=== PATIENT | female | born 1980 | race Caucasian/White ===

== ENCOUNTER 2019-07-18 13:10 | Emergency (ER) | payer SELFPAY ==
--- NOTE | 2019-07-18 13:24 | EDM.PDOC ---
ED HPI GENERAL MEDICAL PROBLEM - General Chief Complaint: Cardiovascular Problem Stated Complaint: FLUTTERING HEART Time Seen by Provider: 07/18/19 13:23 - History of Present Illness INITIAL COMMENTS - FREE TEXT/NARRATIVE: 38-year-old female presents the emergency room with palpitations. This is been going on for last couple of weeks. At times she feels her heart racing and at those times she has a crushing sensation in her chest. Then gets better today she is felt the heart race more than normal but has not had the crushing sensation in her chest. Patient has no history of thyroid problems denies any other significant medical problems. No breathing difficulties or shortness of breath. 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 Musculoskeletal History: Reports: None Neurological History: Reports: Headaches, Chronic Psychiatric History: Reports: None Endocrine/Metabolic History: Reports: Obesity/BMI 30+ Hematologic History: Reports: None Immunologic History: Reports: None Oncologic (Cancer) History: Reports: None Dermatologic History: Reports: None - Infectious Disease History Infectious Disease History: Reports: None - Past Surgical History HEENT Surgical History: Reports: Oral Surgery Social & Family History - Tobacco Use Smoking Status *Q: Current Every Day Smoker Years of Tobacco use: 25 Packs/Tins Daily: 1 - Caffeine Use Caffeine Use: Reports: Coffee - Recreational Drug Use Recreational Drug Use: No ED ROS GENERAL - Review of Systems Review Of Systems: See Below Constitutional: Reports: No Symptoms HEENT: Reports: No Symptoms Respiratory: Reports: No Symptoms Cardiovascular: Reports: Palpitations Endocrine: Reports: No Symptoms GI/Abdominal: Reports: No Symptoms : Reports: No Symptoms Neurological: Reports: No Symptoms ED EXAM, GENERAL - Physical Exam Exam: See Below Exam Limited By: No Limitations General Appearance: Alert, No Apparent Distress Head: Atraumatic, Normocephalic Neck: Normal Inspection, Supple, Non-Tender, Full Range of Motion. No: Lymphadenopathy (L), Lymphadenopathy (R), Thyromegaly Respiratory/Chest: No Respiratory Distress, Lungs Clear, Normal Breath Sounds Cardiovascular: Normal Peripheral Pulses, Regular Rate, Rhythm, No Edema GI/Abdominal: Normal Bowel Sounds, Soft, Non-Tender Course - Vital Signs Last Recorded V/S: Last Vital Signs Temp 36.2 C 07/18/19 13:18 Pulse 89 07/18/19 13:18 Resp 16 07/18/19 13:18 BP 168/125 H 07/18/19 13:18 Pulse Ox 100 07/18/19 13:18 - Orders/Labs/Meds Orders: Active Orders 24 hr Category Date Time Status EKG 12 Lead [EKG Documentation Completion] [RC] ROUTINE Care 07/18/19 13:24 Active Holter Monitor 48 Hours [RC] .PRN Care 07/18/19 16:15 Ordered Labs: Laboratory Tests 07/18/19 07/18/19 Range/Units 14:05 14:05 WBC 9.59 (3.98-10.04) K/mm3 RBC 4.55 (3.98-5.22) M/mm3 Hgb 13.4 (11.2-15.7) gm/dl Hct 39.8 (34.1-44.9) % MCV 87.5 (79.4-94.8) fl MCH 29.5 (25.6-32.2) pg MCHC 33.7 (32.2-35.5) g/dl RDW Std Deviation 45.6 (36.4-46.3) fL Plt Count 151 L (182-369) K/mm3 MPV 11.9 (9.4-12.3) fl Neut % (Auto) 64.4 (34.0-71.1) % Lymph % (Auto) 25.4 (19.3-51.7) % Stearns % (Auto) 6.7 (4.7-12.5) % Eos % (Auto) 2.9 (0.7-5.8) Baso % (Auto) 0.4 (0.1-1.2) % Neut # (Auto) 6.17 H (1.56-6.13) K/mm3 Lymph # (Auto) 2.44 (1.18-3.74) K/mm3 Stearns # (Auto) 0.64 H (0.24-0.36) K/mm3 Eos # (Auto) 0.28 (0.04-0.36) K/mm3 Baso # (Auto) 0.04 (0.01-0.08) K/mm3 Sodium 140 (136-145) mEq/L Potassium 3.8 (3.5-5.1) mEq/L Chloride 105 (98-107) mEq/L Carbon Dioxide 27 (21-32) mEq/L Anion Gap 11.8 (5-15) BUN 18 (7-18) mg/dL Creatinine 1.0 (0.55-1.02) mg/dL Est Cr Clr Drug Dosing 74.18 mL/min Estimated GFR (MDRD) > 60 (>60) mL/min BUN/Creatinine Ratio 18.0 (14-18) Glucose 97 (74-106) mg/dL Calcium 9.1 (8.5-10.1) mg/dL Magnesium 1.8 (1.8-2.4) mg/dl Total Bilirubin 0.2 (0.2-1.0) mg/dL AST 15 (15-37) U/L ALT 25 (14-59) U/L Alkaline Phosphatase 64 (46-116) U/L Troponin I < 0.017 (0.00-0.056) ng/mL Total Protein 6.8 (6.4-8.2) g/dl Albumin 3.2 L (3.4-5.0) g/dl Globulin 3.6 gm/dL Albumin/Globulin Ratio 0.9 L (1-2) TSH 3rd Generation 1.044 (0.358-3.74) uIU/mL - Re-Assessments/Exams Free Text/Narrative Re-Assessment/Exam: 07/18/19 16:12 Labs finally done and are unrevealing as to the cause of her palpitations we will check a Holter monitor and discharge the patient Departure - Departure Time of Disposition: 16:17 Disposition: Home, Self-Care 01 Clinical Impression: Palpitations Referrals: PCP,None [Primary Care Provider] - Forms: ED Department Discharge Additional Instructions: Return to the emergency room with any questions problems or worsening symptoms. Return the Holter monitor as directed then follow-up in the hospital clinic several days after the Holter is done. Call for an appointment as soon as you can [phone] Sepsis Event Note - Evaluation Sepsis Screening Result: No Definite Risk - Focused Exam Vital Signs: Vital Signs Temp Pulse Resp BP Pulse Ox 07/18/19 13:18 36.2 C 89 16 168/125 H 100 Date Exam was Performed: 07/18/19 Time Exam was Performed: 16:16 - My Orders Last 24 Hours: My Active Orders 07/18/19 13:24 EKG 12 Lead [EKG Documentation Completion] [RC] ROUTINE 07/18/19 16:15 Holter Monitor 48 Hours [RC] .PRN - Assessment/Plan Last 24 Hours: My Active Orders 07/18/19 13:24 EKG 12 Lead [EKG Documentation Completion] [RC] ROUTINE 07/18/19 16:15 Holter Monitor 48 Hours [RC] .PRN
[2019-07-18 16:39] VITALS: BP 130/73; PULSE 70
== END 2019-07-18 16:39 | disposition home or self-care (01) ==
LOC: JD.ED 13:10
DX: R00.2 Palpitations (principal); F17.210 Nicotine dependence, cigarettes, uncomplicated
CPT/HCPCS: 36415; 80053; 83735; 84443; 84484; 85025; 93005; 93010; 93225; 93226; 99283; 99285-25

== ENCOUNTER 2019-10-10 14:05 | Emergency (ER) | payer OTHER ==
[2019-10-10 14:22] VITALS: BP 160/94; PULSE 65
--- NOTE | 2019-10-10 15:03 | EDM.PDOC ---
ED HPI GENERAL MEDICAL PROBLEM - General Source of Information: Reports: Patient, RN Notes Reviewed History Limitations: Reports: No Limitations <Ai Phillips - Last Filed: 10/10/19 16:49> <Alberto Nguyen - Last Filed: 10/13/19 08:38> - General Chief Complaint: Headache Stated Complaint: POSS CONCUSSION Time Seen by Provider: 10/10/19 14:20 - History of Present Illness INITIAL COMMENTS - FREE TEXT/NARRATIVE: The patient presents with complaints of left mastoid pain and difficulties with memory steaming from an incident on Wednesday. She sates she was having intercourse on Wednesday when she rolled to her side she hit her left mastoid area. She does not remember the incident. She has no memory 2 hours prior to the incident and no memory post accident until waking up on Wednesday morning. She reports that she kept thinking the month was December and was calling her boyfriend by the wrong name. She did not remember his correct name until early Wednesday. She returned to work on Wednesday. 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 She did not recognized people she has known for years. She reports lightheadedness, nausea and decreased appetite. She denies urinary symptoms. No constipation or diarrhea. She has no difficulty balance and ambulation. She denies difficulty driving. She expressed as if she has "brain fog". She reports her left mastoid area is tender to touch. She has been taking Tylenol for a constant HERNANDEZ. (Ai Phillips) - Related Data Allergies Allergy/AdvReac Type Severity Reaction Status Date / Time No Known Allergies Allergy Verified 10/10/19 14:22 Home Meds: Home Meds Aller Xt-Tree Pollen-Melaleuca [Melaleuca] 6 tab PO DAILY 07/18/19 [History] Past Medical History Cardiovascular History: Reports: Hypertension Neurological History: Reports: Headaches, Chronic Psychiatric History: Reports: Anxiety, Schizophrenia Endocrine/Metabolic History: Reports: Obesity/BMI 30+ - Past Surgical History HEENT Surgical History: Reports: Oral Surgery <Ai Phlilips - Last Filed: 10/10/19 16:49> Social & Family History - Family History Family Medical History: Noncontributory - Tobacco Use Smoking Status *Q: Current Every Day Smoker Years of Tobacco use: 25 Packs/Tins Daily: 1 - Caffeine Use Caffeine Use: Reports: Energy Drinks <Oliva Phillipsbeth - Last Filed: 10/10/19 16:49> ED ROS GENERAL - Review of Systems Review Of Systems: See Below Constitutional: Reports: Chills, Decreased Appetite. Denies: Fever, Malaise, Weakness, Fatigue HEENT: Denies: Ear Discharge, Hearing Loss, Vertigo, Vision Change Respiratory: Reports: No Symptoms, Shortness of Breath. Denies: Wheezing, Cough Cardiovascular: Reports: Lightheadedness. Denies: Chest Pain, Dyspnea on Exertion Endocrine: Reports: No Symptoms GI/Abdominal: Reports: Decreased Appetite. Denies: Abdominal Pain, Constipation , Diarrhea, Vomiting : Reports: No Symptoms Musculoskeletal: Reports: No Symptoms Skin: Reports: No Symptoms Neurological: Reports: Headache. Denies: Confusion, Dizziness, Numbness, Syncope, Weakness Psychiatric: Reports: No Symptoms Hematologic/Lymphatic: Reports: No Symptoms Immunologic: Reports: No Symptoms <Oliva Phillipsbeth - Last Filed: 10/10/19 16:49> ED EXAM, HEAD INJURY - Physical Exam Exam: See Below Exam Limited By: No Limitations General Appearance: Alert, WD/WN, No Apparent Distress, Other (T: 97.0 P: 65 Resp: 65 Resp: 16 B/P: 160/90) Head: Atraumatic, Normocephalic, Other (No swelling, or discoloration noted) Nexus Criteria: No: Posterior, Midline Cervical Tenderness, Evidence of Intoxication, Altered Level of Consciousness, Focal Neurological Deficit, Painful Distraction Injuries Eyes: Bilateral Eye: EOMI, Normal Inspection, PERRL Ears: Normal External Exam Nose: Normal Inspection Throat/Mouth: Normal Inspection, Normal Lips, Normal Teeth, Normal Gums, Normal Oropharynx, Normal Voice, No Airway Compromise Neck: Non-Tender, Full Range of Motion, Normal Alignment, Normal Inspection Respiratory: No Respiratory Distress, Lungs Clear, Normal Breath Sounds, No Accessory Muscle Use, Chest Non-Tender Cardiovascular: Normal Peripheral Pulses, Regular Rate, Rhythm, No Edema, No Gallop, No JVD, No Murmur, No Rub GI/Abdominal Exam: Normal Bowel Sounds, Soft, Non-Tender, No Organomegaly, No Distention, No Abnormal Bruit, No Mass Back Exam: Full Range of Motion, Normal Inspection, NT Extremities: Normal Inspection, Normal Range of Motion, Non-Tender, No Pedal Edema, Normal Capillary Refill 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 As Tested, No Motor/Sensory Deficits, Alert, Normal Mood/Affect, Oriented x 3 Skin: Normal Color, Warm/Dry - Ton[place] Coma Score Best Eye Response (Ton[place]): (4) Open Spontaneously Best Verbal Response ([place]): (5) Oriented Best Motor Response ([place]): (6) Obeys Commands [place] Total: 15 <Ai Phillips - Last Filed: 10/10/19 16:49> Course <Ai Phillips - Last Filed: 10/10/19 16:49> <Alberto Nguyen - Last Filed: 10/13/19 08:38> - Vital Signs Last Recorded V/S: Last Vital Signs Temp 97.0 F 10/10/19 14:18 Pulse 65 10/10/19 14:18 Resp 16 10/10/19 14:18 BP 160/94 H 10/10/19 14:18 Pulse Ox - Re-Assessments/Exams Free Text/Narrative Re-Assessment/Exam: 14:45 The patient presents with complaints of left mastoid pain and difficulties with memory steaming from an incident on Wednesday. She sates she was having intercourse on Wednesday night when she rolled to her side she hit her left mastoid area. She does not remember the incident. She has no memory 2 hours prior to the incident and no memory post accident until waking up on Wednesday morning. She reports that she kept thinking the month was December and was calling her boyfriend by the wrong name. She did not remember his correct name until early Wednesday. She returned to work on Wednesday. 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 She did not recognized people she has known for years. Advised and educated on clinical course of concussion. She was advised to rest this week or at least until symptoms improve. She stated she has to go [place] the [place] this [place]. She was advised concussions can take weeks to months to heal. (Ai Phillips) 10/10/19 16:23 Initial hx and exam was done by CORAL Oropeza student. I have also examined and interviewed patient. I agree with hx and exam as documented. Discharge instr. as documented. (Alberto Nguyen) Departure <Ai Phillips - Last Filed: 10/10/19 16:49> - Departure Time of Disposition: 15:26 Condition: Fair <Alberto Nguyen - Last Filed: 10/13/19 08:38> - Departure Disposition: Home, Self-Care 01 Clinical Impression: Head concussion - Discharge Information Referrals: Pietro Murcia PA-C [Primary Care Provider] - Forms: ED Department Discharge, ED Return to Work/School Form Additional Instructions: Physical rest and brain rest as much as possible today and the next few days, than increase activity slowly as tolerated. Tylenol q 6 to 8 hr if needed for headache. Follow up clinic if not getting back to normal within 5 to 7 days as expected. Return to ED as needed if symptoms worsening in ay way. Sepsis Event Note - Evaluation Sepsis Screening Result: No Definite Risk - Focused Exam Date Exam was Performed: 10/10/19 Time Exam was Performed: 16:49 <Ai Phillips - Last Filed: 10/10/19 16:49> - Focused Exam Date Exam was Performed: 10/13/19 Time Exam was Performed: 08:37 <Alberto Nguyen - Last Filed: 10/13/19 08:38>
== END 2019-10-10 15:35 | disposition home or self-care (01) ==
LOC: JD.ED 14:05
DX: S06.0X9A Concussion with loss of consciousness of unspecified duration, initial encounter (principal); I10 Essential (primary) hypertension; E66.9 Obesity, unspecified; F17.210 Nicotine dependence, cigarettes, uncomplicated; Z79.899 Other long term (current) drug therapy; Z68.37 Body mass index [BMI] 37.0-37.9, adult; X58.XXXA Exposure to other specified factors, initial encounter
CPT/HCPCS: 99282; 99283

== ENCOUNTER 2020-08-20 21:08 | Emergency (ER) | payer SELFPAY ==
[2020-08-20] MEDS ORDERED: LORazepam 2 MG/ML SDV ONE (21:19)
[2020-08-20] MEDS ORDERED: LORazepam 2 MG/ML SDV IVPUSH ONE (21:21)
[2020-08-20 21:25] VITALS: PULSE 114
--- NOTE | 2020-08-20 21:38 | EDM.PDOC ---
ED HPI GENERAL MEDICAL PROBLEM - General Chief Complaint: Neurological Problem Stated Complaint: [facility] AM[facility] Time Seen by Provider: 08/20/20 21:10 Source of Information: Reports: EMS Notes Reviewed, Old Records History Limitations: Reports: Altered Mental Status - History of Present Illness INITIAL COMMENTS - FREE TEXT/NARRATIVE: She was brought in by EMS with history of having used some sort of recreational mushroom preparation. Patient is unwilling to offer any additional history. She is a smoker. Says she takes no medications. There is a history of psychosis recorded in the record. She either cannot or will not offer any more immediate history. She has received Versed by EMS on the way to the ER. I interviewed her after she had had 2 mg of Ativan IV and she is calm and reasonably focused. The patient's mother was at bedside and she was questioned as well as the patient. Both deny that there is any history of mental illness. The patient has had more or less stable relationships and has 2 children. Also one grandchild. There have been no psychiatric hospitalizations nor psychiatric conditions diagnosed per mother and patient. The patient has a job at the [employer]. She apparently has a new male significant other. Patient contends and the mother agrees that the use of mushrooms which precipitated the transport to the hospital was an isolated event and that there is no history of street drug abuse otherwise. Treatments LABORATORY SAMPLE CARRIER: Reports: Other (see below) Other Treatments LABORATORY SAMPLE CARRIER: versed in ambulance - Related Data Allergies Allergy/AdvReac Type Severity Reaction Status Date / Time No Known Allergies Allergy Verified 08/20/20 21:23 Home Meds: Home Meds . [No Known Home Meds] 08/20/20 [History] Past Medical History - Past Health History Medical/Surgical History: Denies Medical/Surgical History Cardiovascular History: Reports: Hypertension Respiratory History: Reports: None Gastrointestinal History: Reports: None Genitourinary History: Reports: None DEAN OF STUDENTS History: Reports: None Musculoskeletal History: Reports: None Neurological History: Reports: Headaches, Chronic Psychiatric History: Reports: Anxiety, Schizophrenia Endocrine/Metabolic History: Reports: Obesity/BMI 30+ Hematologic History: Reports: None Immunologic History: Reports: None Oncologic (Cancer) History: Reports: None Dermatologic History: Reports: None - Infectious Disease History Infectious Disease History: Reports: None - Past Surgical History HEENT Surgical History: Reports: Oral Surgery Social & Family History - Family History Family Medical History: No Pertinent Family History - Tobacco Use Tobacco Use Status *Q: Current Every Day Tobacco User Years of Tobacco use: 21 Packs/Tins Daily: 1 Second Hand Smoke Exposure: No - Caffeine Use Caffeine Use: Reports: None - Recreational Drug Use Recreational Drug Use: Yes Recreational Drug Type: Reports: Psilocybin (Mushrooms) ED ROS GENERAL - Review of Systems Review Of Systems: Unable To Obtain Reason Not Obtained: Poorly cooperative with interview. - Physical Exam Exam: See Below Text/Narrative:: On exam the patient is in no distress though initially she was quite agitated tremulous and inattentive. She received 2 mg of IV Ativan. At the time of this exam she was calm but withdrawn and unwilling to provide much information. Head normocephalic atraumatic. HEENT grossly unremarkable. Neck supple without jugular venous distention. Patient is comfortable lying flat on the gurney. Bilateral breath sounds are heard, grossly clear but patient resists being positioned for optimal exam. Heart is unremarkable except for a mild tachycardia. Abdomen is soft and nontender. Patient is fairly corpulent. There is no peripheral edema cyanosis or clubbing of the digits. Neurologically she is grossly intact with normal speech such as it is, no gross deficit of motor or sensory function. Skin is warm and dry with normal turgor. The patient's utterances give evidence that she is having probably visual hallucinations. #1 Interpretation EKG Date: 08/20/20 Time: 21:30 Rhythm: Other (sinus tachycardia) Rate (Beats/Min): 115 [place]: Normal P-Wave: Present QRS: Normal ST-T: Depressed QT: Prolonged Comparison: Change From Previous EKG (tachycardia and NS ST changes) #2 Interpretation EKG Date: 08/21/20 Time: 01:48 Rhythm: NSR [place]: Normal P-Wave: Present QRS: Normal ST-T: Other (resolution of nonspecific ST depression almost completely) QT: Prolonged (slightly) Course - Vital Signs Text/Narrative:: The patient has passed the night peacefully and was arousable about 6 AM and we are preparing to discharge her. She is stable. She is no longer tachycardic. She has maintained her oxygen saturation. She is remained afebrile. There is a mildly elevated white count just shy of 15,000. No significant left shift. There is mild thrombocytopenia. Urinalysis without evidence of urinary tract infection. Chest x-ray does not show any focal infiltrate and the patient has remained afebrile with a normal oxygen saturation and clear lungs on exam. Close follow-up with primary physician is advised. She should call today and be seen within 24 hours if at all possible. She needs follow-up with respect to her CBC. Also her clinical status. Last Recorded V/S: Last Vital Signs Temp 36.6 C 08/20/20 21:12 Pulse 114 H 08/20/20 21:12 Resp 24 H 08/20/20 21:12 BP Pulse Ox 96 08/20/20 21:12 - Orders/Labs/Meds Orders: Active Orders 24 hr Category Date Time Status EKG Documentation Completion [RC] STAT Care 08/20/20 21:22 Active EKG Documentation Completion [RC] STAT Care 08/21/20 01:35 Active Chest 1V Frontal [CR] Stat Exams 08/20/20 23:02 Taken Head wo Cont [CT] Stat Exams 08/20/20 23:01 Taken Sodium Chloride 0.9% [Normal Saline] 1,000 ml Med 08/20/20 21:30 Active IV ASDIRECTED Medication Orders Sodium Chloride (Normal Saline) 1,000 mls @ 150 mls/hr IV ASDIRECTED YUNG Last Admin: 08/21/20 05:26 Dose: 150 mls/hr Documented by: Infusion: 08/21/20 04:41 Dose: 150 mls/hr Documented by: Admin: 08/20/20 22:00 Dose: 150 mls/hr Documented by: CRISS Labs: Laboratory Tests 08/20/20 08/20/20 08/20/20 Range/Units 21:29 21:29 21:29 WBC 14.54 H (3.98-10.04) K/mm3 RBC 4.57 (3.98-5.22) M/mm3 Hgb 11.7 D (11.2-15.7) gm/dl Hct 37.3 (34.1-44.9) % MCV 81.6 D (79.4-94.8) fl MCH 25.6 (25.6-32.2) pg MCHC 31.4 L (32.2-35.5) g/dl RDW Std Deviation 49.6 H (36.4-46.3) fL Plt Count 175 L (182-369) K/mm3 MPV 12.4 H (9.4-12.3) fl Neutrophils % (Manual) 62 H (40-60) % Band Neutrophils % 0 (0-10) % Lymphocytes % (Manual) 30 (20-40) % Atypical Lymphs % 0 % Monocytes % (Manual) 5 (2-10) % Eosinophils % (Manual) 3 (0.7-5.8) % Basophils % (Manual) 0 L (0.1-1.2) Platelet Estimate Adequate Anisocytosis 1+ slight RBC Morph Comment Abnormal Sodium 141 (136-145) mEq/L Potassium 3.4 L (3.5-5.1) mEq/L Chloride 104 (98-107) mEq/L Carbon Dioxide 24 (21-32) mEq/L Anion Gap 16.4 H (5-15) BUN 15 (7-18) mg/dL Creatinine 0.9 (0.55-1.02) mg/dL Est Cr Clr Drug Dosing 84.66 mL/min Estimated GFR (MDRD) > 60 (>60) mL/min BUN/Creatinine Ratio 16.7 (14-18) Glucose 137 H (74-106) mg/dL Calcium 8.6 (8.5-10.1) mg/dL Magnesium 1.9 (1.8-2.4) mg/dl Total Bilirubin 0.2 (0.2-1.0) mg/dL AST 19 (15-37) U/L ALT 36 (14-59) U/L Alkaline Phosphatase 71 (46-116) U/L Troponin I < 0.017 (0.00-0.056) ng/mL Total Protein 7.2 (6.4-8.2) g/dl Albumin 3.4 (3.4-5.0) g/dl Globulin 3.8 gm/dL Albumin/Globulin Ratio 0.9 L (1-2) Lipase 132 (73-393) U/L TSH 3rd Generation 1.517 (0.358-3.74) uIU/mL Urine Color (Yellow) Urine Appearance (Clear) Urine pH (5.0-8.0) Ur Specific [place] (1.005-1.030) Urine Protein (Negative) Urine Glucose (UA) (Negative) Urine Ketones (Negative) Urine Occult Blood (Negative) Urine Nitrite (Negative) Urine Bilirubin (Negative) Urine Urobilinogen (0.2-1.0) Ur Leukocyte Esterase (Negative) Urine RBC (0-5) /hpf Urine WBC (0-5) /hpf Ur Squamous Epith Cells (0-5) /hpf Urine Bacteria (FEW) /hpf Urine Mucus (FEW) /hpf Urine HCG, Qual (NEGATIVE) Salicylates 3.8 (2.8-20) mg/dL Urine Opiates Screen (SJAYRU=239) Ur Buprenorphine Scrn (CUTOFF=10) Ur Oxycodone Screen (WBS1RU=284) Urine Methadone Screen (TNNVGI=245) Ur Propoxyphene Screen (VVZDAJ=103) Acetaminophen 0 L (10-30) ug/mL Ur Barbiturates Screen (RIFUCX=512) Ur Tricyclics Screen (QOYLSZ=856) Ur Phencyclidine Scrn (CUTOFF=25) Ur Amphetamine Screen (SXOUKW=293) U Methamphetamines Scrn (BMDYPD=141) U Benzodiazepines Scrn (GVRDDC=156) U Cocaine Metab Screen (BKSHRQ=925) U Marijuana (THC) Screen (CUTOFF=50) Ethyl Alcohol 0.00 (0.00) gm% SARS-CoV-2 RNA (SELAM) (NEGATIVE) 08/20/20 08/20/20 08/20/20 Range/Units 21:30 21:45 21:45 WBC (3.98-10.04) K/mm3 RBC (3.98-5.22) M/mm3 Hgb (11.2-15.7) gm/dl Hct (34.1-44.9) % MCV (79.4-94.8) fl MCH (25.6-32.2) pg MCHC (32.2-35.5) g/dl RDW Std Deviation (36.4-46.3) fL Plt Count (182-369) K/mm3 MPV (9.4-12.3) fl Neutrophils % (Manual) (40-60) % Band Neutrophils % (0-10) % Lymphocytes % (Manual) (20-40) % Atypical Lymphs % % Monocytes % (Manual) (2-10) % Eosinophils % (Manual) (0.7-5.8) % Basophils % (Manual) (0.1-1.2) Platelet Estimate Anisocytosis RBC Morph Comment Sodium (136-145) mEq/L Potassium (3.5-5.1) mEq/L Chloride (98-107) mEq/L Carbon Dioxide (21-32) mEq/L Anion Gap (5-15) BUN (7-18) mg/dL Creatinine (0.55-1.02) mg/dL Est Cr Clr Drug Dosing mL/min Estimated GFR (MDRD) (>60) mL/min BUN/Creatinine Ratio (14-18) Glucose (74-106) mg/dL Calcium (8.5-10.1) mg/dL Magnesium (1.8-2.4) mg/dl Total Bilirubin (0.2-1.0) mg/dL AST (15-37) U/L ALT (14-59) U/L Alkaline Phosphatase (46-116) U/L Troponin I (0.00-0.056) ng/mL Total Protein (6.4-8.2) g/dl Albumin (3.4-5.0) g/dl Globulin gm/dL Albumin/Globulin Ratio (1-2) Lipase (73-393) U/L TSH 3rd Generation (0.358-3.74) uIU/mL Urine Color Yellow (Yellow) Urine Appearance Clear (Clear) Urine pH 5.5 (5.0-8.0) Ur Specific [place] > or = 1.030 (1.005-1.030) Urine Protein 1+ H (Negative) Urine Glucose (UA) Negative (Negative) Urine Ketones Negative (Negative) Urine Occult Blood Negative (Negative) Urine Nitrite Negative (Negative) Urine Bilirubin 1+ H (Negative) Urine Urobilinogen 0.2 (0.2-1.0) Ur Leukocyte Esterase Negative (Negative) Urine RBC 0-5 (0-5) /hpf Urine WBC 0-5 (0-5) /hpf Ur Squamous Epith Cells 0-5 (0-5) /hpf Urine Bacteria Few (FEW) /hpf Urine Mucus Few (FEW) /hpf Urine HCG, Qual Negative (NEGATIVE) Salicylates (2.8-20) mg/dL Urine Opiates Screen (TUBILT=178) Ur Buprenorphine Scrn (CUTOFF=10) Ur Oxycodone Screen (TIW6OU=002) Urine Methadone Screen (SWOVAD=205) Ur Propoxyphene Screen (PSHWRY=843) Acetaminophen (10-30) ug/mL Ur Barbiturates Screen (PWEDNI=512) Ur Tricyclics Screen (PDAMGV=274) Ur Phencyclidine Scrn (CUTOFF=25) Ur Amphetamine Screen (CAAXWW=806) U Methamphetamines Scrn (NVEKGS=338) U Benzodiazepines Scrn (GTQNMF=094) U Cocaine Metab Screen (YBHIPS=695) U Marijuana (THC) Screen (CUTOFF=50) Ethyl Alcohol (0.00) gm% SARS-CoV-2 RNA (SELAM) Negative (NEGATIVE) 08/20/20 Range/Units 21:45 WBC (3.98-10.04) K/mm3 RBC (3.98-5.22) M/mm3 Hgb (11.2-15.7) gm/dl Hct (34.1-44.9) % MCV (79.4-94.8) fl MCH (25.6-32.2) pg MCHC (32.2-35.5) g/dl RDW Std Deviation (36.4-46.3) fL Plt Count (182-369) K/mm3 MPV (9.4-12.3) fl Neutrophils % (Manual) (40-60) % Band Neutrophils % (0-10) % Lymphocytes % (Manual) (20-40) % Atypical Lymphs % % Monocytes % (Manual) (2-10) % Eosinophils % (Manual) (0.7-5.8) % Basophils % (Manual) (0.1-1.2) Platelet Estimate Anisocytosis RBC Morph Comment Sodium (136-145) mEq/L Potassium (3.5-5.1) mEq/L Chloride (98-107) mEq/L Carbon Dioxide (21-32) mEq/L Anion Gap (5-15) BUN (7-18) mg/dL Creatinine (0.55-1.02) mg/dL Est Cr Clr Drug Dosing mL/min Estimated GFR (MDRD) (>60) mL/min BUN/Creatinine Ratio (14-18) Glucose (74-106) mg/dL Calcium (8.5-10.1) mg/dL Magnesium (1.8-2.4) mg/dl Total Bilirubin (0.2-1.0) mg/dL AST (15-37) U/L ALT (14-59) U/L Alkaline Phosphatase (46-116) U/L Troponin I (0.00-0.056) ng/mL Total Protein (6.4-8.2) g/dl Albumin (3.4-5.0) g/dl Globulin gm/dL Albumin/Globulin Ratio (1-2) Lipase (73-393) U/L TSH 3rd Generation (0.358-3.74) uIU/mL Urine Color (Yellow) Urine Appearance (Clear) Urine pH (5.0-8.0) Ur Specific [place] (1.005-1.030) Urine Protein (Negative) Urine Glucose (UA) (Negative) Urine Ketones (Negative) Urine Occult Blood (Negative) Urine Nitrite (Negative) Urine Bilirubin (Negative) Urine Urobilinogen (0.2-1.0) Ur Leukocyte Esterase (Negative) Urine RBC (0-5) /hpf Urine WBC (0-5) /hpf Ur Squamous Epith Cells (0-5) /hpf Urine Bacteria (FEW) /hpf Urine Mucus (FEW) /hpf Urine HCG, Qual (NEGATIVE) Salicylates (2.8-20) mg/dL Urine Opiates Screen Negative (LMNGCC=940) Ur Buprenorphine Scrn Negative (CUTOFF=10) Ur Oxycodone Screen Negative (HQR3QN=721) Urine Methadone Screen Negative (YOFZTL=071) Ur Propoxyphene Screen Negative (TZICYF=538) Acetaminophen (10-30) ug/mL Ur Barbiturates Screen Negative (ZAAAVL=770) Ur Tricyclics Screen Negative (BOPXIX=973) Ur Phencyclidine Scrn Negative (CUTOFF=25) Ur Amphetamine Screen Negative (KPZCQF=824) U Methamphetamines Scrn Negative (IZPOYT=299) U Benzodiazepines Scrn Negative (ULFZZP=724) U Cocaine Metab Screen Negative (KIOZIS=760) U Marijuana (THC) Screen Presumptive positive H (CUTOFF=50) Ethyl Alcohol (0.00) gm% SARS-CoV-2 RNA (SELAM) (NEGATIVE) Meds: Medications Generic Name Dose Route Start Last Admin Trade Name Freq PRN Reason Stop Dose Admin Sodium Chloride 1,000 mls @ 150 mls/hr 08/20/20 21:30 08/21/20 05:26 Normal Saline IV 150 mls/hr ASDIRECTED YUNG Administration Discontinued Medications Generic Name Dose Route Start Last Admin Trade Name Freq PRN Reason Stop Dose Admin Lorazepam 2 mg 08/20/20 21:21 08/20/20 21:39 Lorazepam 2 Mg/Ml Sdv IVPUSH 08/20/20 21:22 2 mg ONETIME ONE Administration Lorazepam Confirm 08/20/20 21:19 08/20/20 21:56 Lorazepam 2 Mg/Ml Sdv Administered 08/20/20 21:20 Not Given Dose 2 mg .ROUTE .STK-MED ONE Departure - Departure Time of Disposition: 06:44 Disposition: Home, Self-Care 01 Condition: Good Clinical Impression: Hallucinogen abuse with intoxication, Psilocybin abuse - Discharge Information Forms: ED Department Discharge Additional Instructions: You have been seen for intoxication with hallucinogenic compounds from mushrooms. You are being discharged in stable and markedly improved condition. You need close follow-up by your primary physician. Call today and make arrangements for follow-up. It would be best if you were seen within 24 hours. You do have a somewhat elevated white blood count without any clear evidence of infection so an antibiotic is not ordered. In the event of fever or any other symptom of acute medical illness return to the emergency department right away if you are not already in the hands of a primary care provider. You should return to the emergency department for a significantly elevated fever, feeling sick with physical compromise, chest pain, shortness of breath, or any symptom suggestive of serious illness that cannot wait to be evaluated. Sepsis Event Note (ED) - Evaluation Sepsis Screening Result: No Definite Risk - Focused Exam Vital Signs: Vital Signs Temp Pulse Resp Pulse Ox 08/20/20 21:12 36.6 C 114 H 24 H 96 - My Orders Last 24 Hours: My Active Orders 08/20/20 21:22 EKG Documentation Completion [RC] STAT 08/20/20 21:30 Sodium Chloride 0.9% [Normal Saline] 1,000 ml IV ASDIRECTED 08/20/20 23:01 Head wo Cont [CT] Stat 08/20/20 23:02 Chest 1V Frontal [CR] Stat 08/21/20 01:35 EKG Documentation Completion [RC] STAT - Assessment/Plan Last 24 Hours: My Active Orders 08/20/20 21:22 EKG Documentation Completion [RC] STAT 08/20/20 21:30 Sodium Chloride 0.9% [Normal Saline] 1,000 ml IV ASDIRECTED 08/20/20 23:01 Head wo Cont [CT] Stat 08/20/20 23:02 Chest 1V Frontal [CR] Stat 08/21/20 01:35 EKG Documentation Completion [RC] STAT
[2020-08-20] MEDS: Sodium Chloride 0.9% 1,000 ML IV SCH (22:00)
[2020-08-20 22:18] LABS: ACETAMINOPHEN 0 ug/mL (10-30)
[2020-08-21] MEDS: Sodium Chloride 0.9% 1,000 ML IV SCH (05:26)
--- NOTE | 2020-08-21 08:59 | CT ---
Head CT Technique: Multiple axial sections through the brain were obtained. Intravenous contrast was not utilized. Reconstructed coronal and sagittal images were obtained. Artifact is noted from right ear jewelry. Findings: Ventricles along with basal cisterns and sulci over the convexities appear within normal limits for the patient's age. No definite abnormal parenchymal densities are seen. No evidence of intracranial hemorrhage. No midline shift or mass-effect is seen. Bone window settings were reviewed. No acute calvarial finding is seen. Visualized mastoid sinuses and paranasal sinuses show nothing acute. Impression: 1. Slightly abnormal study from artifact caused by right ear jewelry. 2. Nothing acute is definitely appreciated on noncontrast head CT study. Diagnostic code #2 I agree with preliminary report from [facility], finalized on 08/21/20, 1:18 AM CDT
--- NOTE | 2020-08-21 09:03 | CR ---
Chest: Portable view of the chest was obtained. Comparison: Prior chest x-ray of 08/16/17 and 07/21/15. Heart size and mediastinum are within normal limits for portable technique. Slightly limited inspiratory effort is seen. Lungs show no discrete parenchymal abnormality. Bony structure show nothing acute. Minimal density is noted overlying the left upper lung which is stable presumably from prior surgery. Impression: 1. Somewhat limited inspiratory study. 2. Nothing acute is otherwise seen on portable chest x-ray. Diagnostic code #2
== END 2020-08-21 07:28 | disposition home or self-care (01) ==
LOC: JD.ED 21:08
DX: F16.129 Hallucinogen abuse with intoxication, unspecified (principal); I10 Essential (primary) hypertension; F17.200 Nicotine dependence, unspecified, uncomplicated; E66.9 Obesity, unspecified; Z68.36 Body mass index [BMI] 36.0-36.9, adult; Z20.822 Contact with and (suspected) exposure to COVID-19
CPT/HCPCS: 36415; 70450; 71045; 80053; 80143; 80179; 80306; 80307; 81001; 81025; 83690; 83735; 84443; 84484; 85007; 85027; 87635; 93005; 96374; 99285; J2060; J7030; 93010; 99284; U0002